=== PATIENT | male | born 1955 ===

== ENCOUNTER → 2017-03-10 | Outpatient (CLI) | payer OTHER ==
[~2017-03-10] MED LIST: ASPI-1471 PO; EZET10TA41 PO; NAPR500T75 PO; ROSU20TA13 PO; ROSU40TA10 PO; ROSU5TAB8 PO; SILD25TA6 PO; TELM1TAB12 PO; TELM20TA4 PO
== END ==
LOC: RESP 19:58
PROVIDERS: ATTEND Emergency Medicine
DX: Z02.9 Encounter for administrative examinations, unspecified (principal)

== ENCOUNTER → 2017-03-29 | Outpatient (CLI) | payer OTHER | LOC: LAB 10:19 | PROVIDERS: ATTEND Emergency Medicine | DX: I25.10 Atherosclerotic heart disease of native coronary artery without angina pectoris (principal) | CPT/HCPCS: 36415; 82465; 83718; 84478 ==

== ENCOUNTER → 2017-04-15 | Outpatient (CLI) | payer OTHER | LOC: RESP 19:55 | PROVIDERS: ATTEND Emergency Medicine | DX: G47.19 Other hypersomnia (principal); G47.30 Sleep apnea, unspecified; G47.61 Periodic limb movement disorder; G47.36 Sleep related hypoventilation in conditions classified elsewhere; E66.3 Overweight ==

== ENCOUNTER → 2017-04-26 | Outpatient (CLI) | payer OTHER | LOC: LAB 13:26 | PROVIDERS: ATTEND Emergency Medicine | DX: G47.61 Periodic limb movement disorder (principal); G47.34 Idiopathic sleep related nonobstructive alveolar hypoventilation | CPT/HCPCS: 36415; 82465; 82607; 82728; 82746; 83718; 84478 ==

== ENCOUNTER 2017-08-10 15:25 | Outpatient (RCR) | payer OTHER ==
[~2017-08-10 15:25] MED LIST changes: -ROSU20TA13 PO; +ROSU20TA5 PO; -ROSU40TA10 PO; +ROSU40TA2 PO
[2017-08-11] MEDS ORDERED: TELM1TAB12 PO (11:25)
[2017-08-11] MEDS ORDERED: EZET10TA41 PO (11:35)
== END 2017-09-28 12:15 | disposition home or self-care (01) ==
LOC: RAON 15:25
PROVIDERS: ATTEND Radiology Radiation Oncology
DX: Z85.46 Personal history of malignant neoplasm of prostate (principal); Z92.3 Personal history of irradiation
CPT/HCPCS: 99203